=== PATIENT | female | born 1970 | race Caucasian/White ===

== ENCOUNTER 2017-04-07 18:13 | Emergency (ER) | payer MEDICAID, OTHER ==
[~2017-04-07] VITALS: Ht 167.6 cm; Wt 90.7 kg
--- NOTE | 2017-04-07 19:51 | NUR ---
pt in no distress, denies cp, pt advised to f/u with pmd or return to er for worsening of symptoms,verbalizes understanding, rx given to pt.
== END 2017-04-07 19:56 | disposition home or self-care (01) ==
LOC: ER 18:14
DX: J20.8 Acute bronchitis due to other specified organisms (principal); F17.200 Nicotine dependence, unspecified, uncomplicated
CPT/HCPCS: A4663

== ENCOUNTER 2021-02-27 17:20 | Emergency (ER) | payer OTHER ==
[~2021-02-27] VITALS: Ht 167.6 cm; Wt 94.3 kg
--- NOTE | 2021-02-27 17:54 | NUR ---
DR CARPIO EVALUATED THE PT.
--- NOTE | 2021-02-27 19:05 | NUR ---
PT WAS D/C'd TO HOME AFTER EVALUATION BY DR CARPIO. D/C INSTRUCTIONS GIVEN TO THE PT BY DR CARPIO.
[2021-02-27 19:09] VITALS: BP 139/85
== END 2021-02-27 19:12 | disposition home or self-care (01) ==
LOC: ER 17:40
DX: S09.90XA Unspecified injury of head, initial encounter (principal); W20.8XXA Other cause of strike by thrown, projected or falling object, initial encounter; Y93.89 Activity, other specified; Y92.89 Other specified places as the place of occurrence of the external cause; E11.9 Type 2 diabetes mellitus without complications; Z53.29 Procedure and treatment not carried out because of patient's decision for other reasons
CPT/HCPCS: 70450; A4663